=== PATIENT | male | born 1980 | race African-American/Black ===

== ENCOUNTER 2021-05-10 22:15 | Emergency (ER) | payer OTHER ==
[2021-05-10 22:23] VITALS: BP 131/82; PULSE 81; TEMP 98; BMI 26.6
[2021-05-10] MEDS ORDERED: KETOROLAC TROMETHAMINE 30 MG/1 ML VIAL IM ONE (23:47)
[2021-05-10] MEDS ORDERED: METHOCARBAMOL 500 MG TABLET PO ONE (23:47)
[2021-05-10] MEDS ORDERED: KETOROLAC TROMETHAMINE 30 MG/1 ML VIAL ONE (23:55)
[2021-05-10] MEDS ORDERED: METHOCARBAMOL 500 MG TABLET ONE (23:55)
[2021-05-11 00:19] LABS: URINE APPEARANCE CLEAR; URINE BILIRUBIN NEGATIVE (NEGATIVE); URINE COLOR YELLOW; URINE GLUCOSE (UA) NEGATIVE (NEGATIVE); URINE KETONE TRACE (NEGATIVE); URINE LEUK ESTERASE NEGATIVE (NEGATIVE); URINE NITRITE NEGATIVE (NEGATIVE); URINE PROTEIN TRACE (NEGATIVE)
== END 2021-05-11 00:30 | disposition home or self-care (01) ==
LOC: JER 22:15
PROC: 3E0233Z Introduction of Anti-inflammatory into Muscle, Percutaneous Approach (ICD-10-PCS; principal; 2021-05-10)
DX: M54.5 Low back pain (principal)
CPT/HCPCS: 81003; 96372; 99284-25

== ENCOUNTER 2024-04-02 11:41 | Emergency (ER) | payer OTHER ==
[2024-04-02 11:50] VITALS: BP 108/69; PULSE 68; RESP 18; TEMP 97.7; BMI 26.6
[2024-04-02] MEDS ORDERED: DEXAMETHASONE SOD PHOSPHATE 10 MG/1 ML VIAL ONE (13:34)
[2024-04-02] MEDS ORDERED: KETOROLAC TROMETHAMINE 30 MG/1 ML VIAL ONE (13:34)
[2024-04-02] MEDS: KETOROLAC TROMETHAMINE 30 MG/1 ML VIAL IM ONE (14:04)
[2024-04-02] MEDS: DEXAMETHASONE SOD PHOSPHATE 10 MG/1 ML VIAL IM ONE (14:04)
== END 2024-04-02 14:18 | disposition home or self-care (01) ==
LOC: JERFT 11:41
PROC: 3E0233Z Introduction of Anti-inflammatory into Muscle, Percutaneous Approach (ICD-10-PCS; principal; 2024-04-02)
PROC: 3E023GC Introduction of Other Therapeutic Substance into Muscle, Percutaneous Approach (ICD-10-PCS; 2024-04-02)
DX: M54.41 Lumbago with sciatica, right side (principal)
CPT/HCPCS: 99284-25; J1100

== ENCOUNTER 2024-04-06 16:26 | Emergency (ER) | payer OTHER ==
[2024-04-06 16:37] VITALS: BP 131/72; PULSE 92; RESP 20; TEMP 98.1; BMI 26.6
[2024-04-06] MEDS ORDERED: LIDOCAINE 4% PATCH TP ONE (17:51)
[2024-04-06] MEDS ORDERED: ACETAMINOPHEN 500 MG TABLET (FP) ONE (17:52)
[2024-04-06] MEDS ORDERED: predniSONE 20 MG TABLET (UD) ONE (17:52)
[2024-04-06] MEDS: LIDOCAINE 4% PATCH TP ONE (17:56)
[2024-04-06] MEDS: predniSONE 20 MG TABLET (UD) PO ONE (17:57)
[2024-04-06] MEDS: ACETAMINOPHEN 500 MG TABLET (FP) PO ONE (17:57)
[2024-04-06] MEDS ORDERED: LIDOCAINE PATCH REMOVAL MC SCH (22:00)
== END 2024-04-06 18:15 | disposition home or self-care (01) ==
LOC: JERFT 16:26
DX: M54.50 Low back pain, unspecified (principal); G89.29 Other chronic pain
CPT/HCPCS: 99283-25